=== PATIENT | female | born 1975 | race African-American/Black ===

== ENCOUNTER 2021-11-22 09:37 | Emergency (ER) | payer MEDICAID ==
[~2021-11-22] VITALS: Ht 160 cm; Wt 73.0 kg
[~2021-11-22 09:37] MED LIST: ARIP2TAB3 PO; MIDO10TA PO; SERT25TA PO
[2021-11-22 10:37] LABS: BASOPHILS % 0.5 % (0.0-2.0); CLARITY URINE CLOUDY (CLEAR); COLOR URINE DARK YELLOW (YELLOW); EOSINOPHILS % 0.1 % (0.0-5.0); HEMATOCRIT. 31.1 % (36.0-48.0); HEMOGLOBIN. 9.9 g/dL (12.0-16.0); KETONES URINE 3+ (NEGATIVE); LEUKOCYTE ESTERASE URINE TRACE (NEGATIVE); LYMPHOCYTES % 28.9 % (20.0-50.0); MEAN CORPUSCULAR HEMOGLOBIN 24.6 pg (28.0-32.0); MEAN CORPUSCULAR VOLUME 77.5 fL (81.0-99.0); MEAN PLATELET VOLUME 7.7 fl (7.4-10.4); MONOCYTES % 5.8 % (2.0-8.0); NEUTROPHILS % 64.7 % (40.0-76.0); NITRITE URINE NEGATIVE (NEGATIVE); OCCULT BLOOD URINE 3+ (NEGATIVE); PH URINE 5.5 (4.5-8.0); PLATELET 394 x1000/uL (130-400); PROTEIN URINE 1+ (NEGATIVE); RED BLOOD CELL COUNT 4.02 mill/uL (4.2-5.4); RED CELL DISTRIBUTION WIDTH 20.9 % (11.6-14.6); SPECIFIC GRAVITY URINE 1.024 (1.005-1.030)
[2021-11-22 10:48] LABS: CHLORIDE 110 mEq/L (98-107)
[2021-11-22 10:55] LABS: ETHANOL BLOOD < 10 mg/dL
[2021-11-22 11:10] LABS: *BARBITURATES SCREEN URINE NEGATIVE (NEGATIVE); *BENZODIAZEPINES SCREEN URINE NEGATIVE (NEGATIVE); *COCAINE SCREEN URINE NEGATIVE (NEGATIVE); CANNABINOID URINE SCREEN NEGATIVE (NEGATIVE); METHADONE URINE SCREEN NEGATIVE (NEGATIVE); OPIATES URINE SCREEN NEGATIVE (NEGATIVE); PHENCYCLIDINE URINE SCREEN NEGATIVE (NEGATIVE)
[2021-11-22 11:16] LABS: HCG SCREEN NEGATIVE
[2021-11-22 11:23] LABS: *AMPHETAMINES SCREEN URINE PRESUMTIVE POSITIVE (NEGATIVE)
[2021-11-22] MEDS ORDERED: POTASSIUM CHLORIDE 20MEQ TABLET SR PO ONE (11:30)
[2021-11-22] MEDS ORDERED: CEFTRIAXONE SODIUM 1 G/VIAL IM ONE (11:30)
[2021-11-23] MEDS: ZIPRASIDONE HCL 20MG CAPSULE PO SCH ×2 (10:45→22:13)
[2021-11-24] MEDS: ZIPRASIDONE HCL 20MG CAPSULE PO SCH ×2 (09:00→21:00)
[2021-11-25] MEDS: ZIPRASIDONE HCL 20MG CAPSULE PO SCH (08:54)
[2021-11-25 16:00] VITALS: BP 126/77
== END 2021-11-25 17:23 | disposition home or self-care (01) ==
LOC: ER 09:44
DX: R45.851 Suicidal ideations (principal); F25.9 Schizoaffective disorder, unspecified; F31.9 Bipolar disorder, unspecified; R82.79 Other abnormal findings on microbiological examination of urine; D64.9 Anemia, unspecified; F15.90 Other stimulant use, unspecified, uncomplicated; Z20.822 Contact with and (suspected) exposure to COVID-19; Z59.00 Homelessness unspecified; Z75.1 Person awaiting admission to adequate facility elsewhere
CPT/HCPCS: 36415; 80053; 80305; 80307; 80320; 80329; 81003; 84703; 85025; 87426; 96372; 99285; C9803; J0696; U0003; U0005; G0480